=== PATIENT | male | born 1995 | race Caucasian/White ===

== ENCOUNTER 2020-06-05 09:06 | Emergency (ER) | payer SELFPAY ==
[~2020-06-05] VITALS: Ht 185.4 cm; Wt 90.9 kg
[2020-06-05 09:13] VITALS: BP 145/103
== END 2020-06-05 09:30 | disposition home or self-care (01) ==
LOC: ER 09:06
DX: Z02.89 Encounter for other administrative examinations (principal); F10.129 Alcohol abuse with intoxication, unspecified; Z72.89 Other problems related to lifestyle; V87.7XXA Person injured in collision between other specified motor vehicles (traffic), initial encounter; Y93.89 Activity, other specified; Y92.89 Other specified places as the place of occurrence of the external cause; Y99.8 Other external cause status; Y90.9 Presence of alcohol in blood, level not specified
CPT/HCPCS: 99283

== ENCOUNTER 2020-06-05 23:51 | Emergency (ER) | payer SELFPAY ==
[~2020-06-05] VITALS: Ht 185.4 cm; Wt 90.0 kg
[2020-06-06 00:04] VITALS: BP 124/71
== END 2020-06-06 01:02 | disposition home or self-care (01) ==
LOC: ER 23:52
DX: M54.89 Other dorsalgia (principal)
CPT/HCPCS: 99281